=== PATIENT | male | born 1965 | race Caucasian/White ===

== ENCOUNTER 2021-11-14 19:39 | Emergency (ER) | payer OTHER, SELFPAY ==
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
[2021-11-14 19:46] VITALS: BP 188/98; PULSE 104; O2SAT 97
[2021-11-14 20:01] VITALS: BP 171/92; PULSE 94; RESP 18; TEMP 36.6; O2SAT 96; BMI 35.7
[2021-11-14 21:49] VITALS: BP 175/101; PULSE 90; O2SAT 97
--- NOTE | 2021-11-14 21:57 | PC.NURSE ---
Provider notified about patients elevated blood pressure.
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
[2021-11-14] MEDS: Ketorolac Tromethamine 15 MG/ML VIAL 30 MG IM (23:15)
== END 2021-11-15 00:07 | disposition home or self-care (01) ==
PROVIDERS: Emergency Provider Student in an Organized Health Care Education/Training Program
DX: S13.4XXA Sprain of ligaments of cervical spine, initial encounter (principal); V43.52XA Car driver injured in collision with other type car in traffic accident, initial encounter; M54.50 Low back pain, unspecified; R07.89 Other chest pain; Y93.89 Activity, other specified; Y92.414 Local residential or business street as the place of occurrence of the external cause; Y99.9 Unspecified external cause status
CPT/HCPCS: 70450; 71250; 72125; 96372; 99284; J1885

== ENCOUNTER 2023-08-10 10:37 | Outpatient (AMB) | payer MEDICARE, MEDICAID, SELFPAY ==
--- NOTE | 2023-08-10 10:41 | MHC.AMNUTRGE ---
Intake VS Expanded 08/10/23 10:42 08/15/23 10:47 Height 5 ft 3.5 in 5 ft 3 in Weight 214 lb 8.156 oz 214 lb BMI 37.4 37.9 Intake Visit Reasons: DM Allergies No Known Allergies Allergy (Verified 08/15/23 10:40) Medication List - Last Reconciled 08/15/[address], LDN atorvastatin 20 mg PO BEDTIME cyclobenzaprine 10 mg PO BEDTIME PRN gabapentin 300 mg PO BEDTIME lidocaine 5% 1 patch topical DAILY PRN lisinopril 30 mg PO DAILY metformin ER 500 mg PO BID HPI Nutrition Presentation Details Pt presents for MNT for T2DM . Pt was referred by Dr Man from [facility] Pt reports working on diet modifications, reducing fats, has questions reg carbs/healthy plate method Typical meal intake coffee/crackers or protein shake Lunch: sandwich , or fish fillet dinner: rice/chicken , or spaghetti, fried chicken , plantain fried, salads juices/water beer food frequency fruits: 0-/d vex/wk fish: 1-2 x/wk dairy: 0-1/d starches > 25 serving/d etoh/smoking---- physical activity: sedentary SHL-Goutqrf-Uu.Jeor Equation Height 5 ft 3 in Weight 214 lb Resting Metabolic Rate 1689.48 Calculated Activity Level Sedentary Calories Needed to Maintain Weight 2026.38 Diagnosis Nutrition problem #1 excessive energy intake As related to (etiology) #1 diagnosis (T2DM) As evidenced by (sign/symptom) #1 high BMI (37.9 on 08/15/23) and knowledge deficit of diet Most Recent Diabetes Results: No Data to Display REPLACED BY [facility] Social History Alcohol intake: current Alcohol intake frequency: a few times a week Patient Tobacco Use Status: Current everyday Tobacco user Assessment & Plan Assessment & Plan (1) T2DM (type 2 diabetes mellitus): Code(s): E11.9 - Type 2 diabetes mellitus without complications Plan: Wt: 97 Kg ( 08/2023 ) Est kcal needs as per MSJ: 2000 (40% carb, 30% protein/fat) Est fluid needs as per 25-30 ml/d: 2900 Est prot per day as per 1 g/kg bw: 97 Recommend fiber intake : 8-10 g per day and gradually increase to 25-28 g per day for women and 35-38 g for men or as tolerated Recommend sodium intake per day : less than 2000 mg Educated patient on: ( R = reviewed V = verbalizes understanding N/R = needs review N/A = not applicable Food sources of carbohydrate, adequate serving sizes and its role in various health conditions: R Differences between complex carbohydrates a simple carbohydrates, role of fiber in diet: N/R Lean protein sources of foods: R Differences between types of fats and role in diet (mono on saturated fat fatty acids, saturated fatty acids, trans fats): R Food sources of sodium in salt and healthy modifications for heart health in kidney health: R V R/V Vitamins and minerals: R V N/R Healthy plate method concept: R Physical activity: Benefits a precaution: R V N/R Hypoglycemia protocol (rule of 15): R V N/R Dietary prevention of Hyperglycemia: R V R/V Patient Instructions: Work on reducing total carb at meal to less than 60 g following healthy plate method ( 3 meal/day) Reduce on fried foods, choose baked , broil , steam instead, remove visible fats keep a food record and bring to next f/u for review Coding Level of Care Code Nutr Indiv Intake (00406) Diagnoses T2DM (type 2 diabetes mellitus) E11.9 Time Spent (min) 30 Home Medications and Allergies Home Medications ?Medication ?Instructions ?Recorded ?Confirmed ?Type atorvastatin 20 mg tablet 20 mg PO BEDTIME 08/15/23 08/15/23 History gabapentin 300 mg capsule 300 mg PO BEDTIME 08/15/23 08/15/23 History lisinopril 30 mg tablet 30 mg PO DAILY 08/15/23 08/15/23 History metformin 500 mg tablet,extended 500 mg PO BID 08/15/23 08/15/23 History release 24 hr Allergies Allergy/AdvReac Type Severity Reaction Status Date / Time No Known Allergies Allergy Verified 08/15/23 10:40
[2023-08-10 10:42] VITALS: BMI 37.4
[2023-08-15 10:47] VITALS: BMI 37.9
== END 2023-08-10 11:13 | disposition home or self-care (01) ==
PROVIDERS: Visit Provider Dietitian, Registered
DX: E11.9 Type 2 diabetes mellitus without complications (principal)

== ENCOUNTER → 2023-08-10 10:37 | Outpatient (BNVA) | payer MEDICARE, MEDICAID, SELFPAY | PROVIDERS: Visit Provider Dietitian, Registered | DX: E11.9 Type 2 diabetes mellitus without complications (principal); Z79.84 Long term (current) use of oral hypoglycemic drugs | CPT/HCPCS: 97802 ==

== ENCOUNTER 2023-10-31 13:18 | Outpatient (AMB) | payer MEDICARE, MEDICAID, SELFPAY ==
[2023-10-31 13:43] VITALS: BMI 37.4
--- NOTE | 2023-10-31 13:43 | A.OFFVIS_ITS ---
VS Expanded 10/31/23 13:43 Height 5 ft 3 in Weight 211 lb 6.773 oz BMI 37.4 Intake Visit Reasons: Type 2 DM Allergies No Known Allergies Allergy (Verified 08/15/23 10:40) Nutrition Presentation Details: Pt presents for MNT f/u for T2DM Pt reports working on dietary modifications. BS Monitoring Most Recent Diabetes Results: No Data to Display PFSH Social History Alcohol intake: current Alcohol intake frequency: a few times a week Patient Tobacco Use Status: Current everyday Tobacco user Assessment & Plan Assessment & Plan (1) T2DM (type 2 diabetes mellitus): Code(s): E11.9 - Type 2 diabetes mellitus without complications Category: Medical Plan: Wt: 97 Kg ( 08/2023 ), 96 kg(10/2023) Est kcal needs as per MSJ: 2000 (40% carb, 30% protein/fat) Est fluid needs as per 25-30 ml/d: 2900 Est prot per day as per 1 g/kg bw: 97 Recommend fiber intake : 8-10 g per day and gradually increase to 25-28 g per day for women and 35-38 g for men or as tolerated Recommend sodium intake per day : less than 2000 mg Educated patient on: ( R = reviewed V = verbalizes understanding N/R = needs review N/A = not applicable * Food sources of carbohydrate, adequate serving sizes and its role in various health conditions: R * Differences between complex carbohydrates a simple carbohydrates, role of fiber in diet: N/R * Lean protein sources of foods: R * Differences between types of fats and role in diet (mono on saturated fat fatty acids, saturated fatty acids, trans fats): R * Food sources of sodium in salt and healthy modifications for heart health in kidney health: R V R/V * Vitamins and minerals: R V N/R * Healthy plate method concept: R * Physical activity: Benefits a precaution: R V N/R * Hypoglycemia protocol (rule of 15): R * Dietary prevention of Hyperglycemia: R Patient Instructions: Have yogurt with fruit and nuts as a bedtime snack, - see list of snack options keep physically active as able Coding Level of Care Code Nutr Indiv Subseq (60408) Diagnoses T2DM (type 2 diabetes mellitus) E11.9 Time Spent (min) 30
== END 2023-10-31 14:04 | disposition home or self-care (01) ==
PROVIDERS: Visit Provider Dietitian, Registered
DX: E11.9 Type 2 diabetes mellitus without complications (principal)

== ENCOUNTER → 2023-10-31 13:18 | Outpatient (BNVA) | payer MEDICARE, MEDICAID, SELFPAY | PROVIDERS: Visit Provider Dietitian, Registered | DX: E11.9 Type 2 diabetes mellitus without complications (principal); Z71.3 Dietary counseling and surveillance | CPT/HCPCS: 97803 ==